=== PATIENT | female | born 1990 | race Two or more races ===

== ENCOUNTER 2024-09-28 19:17 | Emergency (ER) | payer BC, MEDICAID, SELFPAY ==
[2024-09-28 19:18] VITALS: BMI 33.6
[2024-09-28 20:40] VITALS: BP 119/80; PULSE 78; RESP 16; TEMP 37.3; O2SAT 98
[2024-09-28] MEDS: NAPROXEN 250 MG TABLET 500 MG PO (21:02)
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
== END 2024-09-28 21:12 | disposition home or self-care (01) ==
PROVIDERS: Emergency Provider Emergency Medicine
DX: S89.91XA Unspecified injury of right lower leg, initial encounter (principal); X58.XXXA Exposure to other specified factors, initial encounter; Y93.02 Activity, running
CPT/HCPCS: 99283; A9270